=== PATIENT | male | born 1980 | race African-American/Black ===

== ENCOUNTER 2017-03-11 17:10 | Emergency (ER) | payer MEDICAID ==
[~2017-03-11] VITALS: Ht 177.8 cm; Wt 88.4 kg
[2017-03-11 17:13] VITALS: BP 122/75
[2017-03-11 18:28] LABS: HIV 1&2 ANTIBODY SCREEN Nonreactive (Nonreactive); HIV-1 p24 ANTIGEN Nonreactive (Nonreactive)
[2017-03-11 19:43] LABS: HEP B SURF. AB < 3.1 mIU/mL (0.0-10.0)
[2017-03-11 20:22] LABS: HEPATITIS C VIRUS ANTIBODY Nonreactive (Nonreactive)
== END 2017-03-11 18:33 | disposition home or self-care (01) ==
LOC: ED 18:00
DX: A60.00 Herpesviral infection of urogenital system, unspecified (principal); Z20.2 Contact with and (suspected) exposure to infections with a predominantly sexual mode of transmission; Z88.0 Allergy status to penicillin
CPT/HCPCS: 36415; 84460; 86592; 86703; 86706; 86803; 87491; 87591; 87899; 99284; G0435